=== PATIENT | female | born 1990 | race Caucasian/White ===

== ENCOUNTER 2022-02-04 11:50 | Emergency (ER) | payer MEDICAID, SELFPAY ==
--- NOTE | 2022-02-04 12:04 | XR_ITS ---
PROCEDURE INFORMATION: Exam: XR Right Wrist Exam date and time: 02/04/2022 12:04 PM Age: 31 years old Clinical indication: Right; Patient HX: Knot / pain in RT wrist TECHNIQUE: Imaging protocol: XR Right wrist. Views: 3 or more views. COMPARISON: No relevant prior studies available. FINDINGS: Bones/joints: Normal. Soft tissues: Normal. IMPRESSION: No acute findings.
--- NOTE | 2022-02-04 12:08 | HMH.EDUTC ---
[facility] [place] Disposition Clinical Impression: Right wrist tendinitis Disposition: Home, Self-Care Condition on Discharge: Good Instructions: DI for Tendinitis, DI for Wrist Pain Additional Instructions: Rest the extremity, Elevate the extremity as tolerated while you are resting. Take ibuprofen for pain. I sent in a prescription to your pharmacy. Follow up with Dr. Winchester (orthopedics). Sometimes there can be fractures that don't show up well on the first set of x-rays. So, you should follow up if you continue to have symptoms. I put in a referral but you need to call his office and schedule an appointment. Follow up with your regular doctor. GO TO THE ER FOR ANY WORSENING SYMPTOMS Prescriptions: Ibuprofen [Ibuprofen 600mg Tablet] 600 mg PO Q6HP PRN #30 tab PRN Reason: Mild Pain Transmission Status: Received by [facility] #[id number] Referrals: Provider,MD Mack [Primary Care Provider] - Luciano Winchester MD [Staff Physician] - Time of Disposition: 13:10 Medical Decision Making - Medical Records Medical records reviewed: No: I reviewed the patient's medical records. - Robert Inquiry Pt receiving controlled substance: No Vital Signs: 02/04/22 12:18 02/04/22 13:30 Temperature 98.2 F 98.2 F Temperature Source Oral Pulse Rate 80 Pulse Rate [Left] 80 Respiratory Rate 16 16 Blood Pressure 119/84 Blood Pressure [Right Arm] 119/84 Blood Pressure Mean [Right Arm] 95 02 Sat by Pulse Oximetry 96 - Radiology Data #1 Image(s): Wrist Image Reviewed: Yes I reviewed the patient's radiology image, Yes I have reviewed radiologist's interpretation Preliminary Findings: Normal/NAD, No Fracture Seen PROCEDURE INFORMATION: Exam: XR Right Wrist Exam date and time: 02/04/2022 12:04 PM Age: 31 years old Clinical indication: Right; Patient HX: Knot / pain in RT wrist TECHNIQUE: Imaging protocol: XR Right wrist. Views: 3 or more views. COMPARISON: No relevant prior studies available. FINDINGS: Bones/joints: Normal. Soft tissues: Normal. IMPRESSION: No acute findings. [facility] [place] HPI - General Stated complaint: rt wrist injury Time Seen by Provider: 02/04/22 12:08 - History of Present Illness Provider Complaint: She states that for the past 2 days she has had right wrist pain. She denies any fall or other trauma. She states that she has has 2 months old baby and it began hurting when she was picking her up. She denies any numbness or tingling. - Related Data Previous Rx's Medication Instructions Recorded Ibuprofen [Ibuprofen 600mg 600 mg PO Q6HP PRN #30 tab 02/04/22 Tablet] Allergies Allergy/AdvReac Type Severity Reaction Status Date / Time No Known Allergies Allergy Verified 02/04/22 12:21 [facility] History - Hepatitis A Screen Attestation statement:: This patient has been screened for Hepatitis A risk factors. I have reviewed the patient's past medical history: Yes ROS Obtained: Yes All systems reviewed & no additional complaints - Constitutional Constitutional: Denies chills, Denies fever(s) - Musculoskeletal Musculoskeletal: Reports as per HPI - Integumentary/Breasts Skin/Breast: Denies redness, Denies rash, Denies wounds - Neurologic Neurologic: Denies tingling/numbness/burning sensations Physical Exam - General General appearance: alert, in no apparent distress - Head Head exam: atraumatic, normocephalic, normal inspection - Eye Eye exam: Present: normal appearance, PERRL, EOMI - ENT ENT exam: Present: normal exam, normal oropharynx, mucous membranes moist, TM's normal bilaterally, normal external ear exam - Neck Neck exam: Present: normal inspection, full ROM, trachea midline. Absent: meningismus, lymphadenopathy - Chest Chest inspection: Present: normal inspection, symmetric chest wall rise. Absent: tenderness - Respiratory Res
[2022-02-04 12:18] VITALS: BP 119/84; PULSE 80; RESP 16; TEMP 36.8; O2SAT 96; BMI 27.3
[2022-02-04 13:30] VITALS: BP 119/84; PULSE 80; RESP 16; TEMP 36.8
== END 2022-02-04 13:30 | disposition home or self-care (01) ==
PROVIDERS: Emergency Provider Nurse Practitioner Family
DX: M70.831 Other soft tissue disorders related to use, overuse and pressure, right forearm (principal)
CPT/HCPCS: 29125; 73110; 99212; G0463